=== PATIENT | male | born 1995 | race Caucasian/White ===

== ENCOUNTER 2018-11-12 14:04 | Inpatient (IN) | payer MEDICARE ==
[2018-11-12 14:57] LABS: ALBUMIN 2.9 g/dL (3.4-5.0); ANION GAP 20.4 mmol/L (8-16); BILIRUBIN - TOTAL 0.32 mg/dL (0.2-1.3); CALCIUM 9.6 mg/dL (8.5-10.1); CARBON DIOXIDE 22.9 mmol/L (21.0-32.0); MAGNESIUM - SERUM 2.4 mg/dL (1.8-2.4); POTASSIUM - SERUM 4.3 mmol/L (3.5-5.1); PROTEIN - SERUM 6.4 g/dL (6.4-8.2)
[2018-11-12 14:58] LABS: CREATININE - SERUM 20.1 mg/dL (0.6-1.3)
[2018-11-12 15:07] LABS: BASOPHILS 1.4 % (0-2); EOSINOPHILS 6.8 % (0-7); HEMOGLOBIN 8.8 g/dL (13.5-17.5); IMMATURE GRANULOCYTES 0.3 % (0-5); MCH 32.1 pg (26.0-34.0); MCHC 33.8 g/dL (31.0-37.0); MCV 94.9 fL (80.0-100.0); MEAN PLATELET VOLUME 9.9 fL (7.4-10.4); MONOCYTES 6.3 % (2-11); NEUTROPHILS 68.2 % (40-80); PLATELET COUNT 297 10x3/uL (130-400); RBC 2.74 10x6/uL (4.20-6.10); RDW 12.4 % (11.5-14.5); WBC 9.7 10x3/uL (4.8-10.8)
--- NOTE | 2018-11-12 17:00 | MORECARE ---
CASE MANAGEMENT DISCHARGE SUMMARY PATIENT: LAURA GRANT UNIT: [id number] ADM DATE: 11/12/18 AGE: 22 : [birth year] SEX: M ROOM/BED: D.2127 AUTHOR: ARA SWEET PHYSICIAN: REFERRING PHYSICIAN: GODFREY SMITH MD DATE OF SERVICE: 11/12/18 Discharge Plan Patient Name: LAURA GRANT Facility: [facility]:[place] : 1995 Planned Disposition: Home Anticipated Discharge Date: 11/16/18 Discharge Date: Expected LOS: 4 Initial Reviewer: [email or web address] Initial Review Date: 11/12/2018 Generated: 11/12/18 5:59 pm DCPIA - Discharge Planning Initial Assessment Updated by [email or web address]: Delma Oevrton on 11/12/18 4:56 pm * Is the patient Alert and Oriented? Yes * PCP Dr. Valadez in [facility] Dr. RADHA Steward Renal * Pharmacy [facility] * Preadmission Environment Home with Family * ADLs Independent * Equipment Other * Other Equipment PD supplies * List name and contact numbers for known caregivers / representatives who currently or will assist patient after discharge: Carolina Sorto - girlfriend - [phone] Iris Grant - grandmother - [phone] * Verbal permission to speak to the caregivers and representatives has been obtained from the patient. Yes * Community resources currently utilized None * Additional services required to return to the preadmission environment? No * Can the patient safely return to the preadmission environment? Yes * Has this patient been hospitalized within the prior 30 days at any hospital? Yes Patient Name: LAURA GRANT Page [phone] at 1700 All edits/amendments must be made on the electronic document DICTATION DATE: 11/12/181658 SOLID GLASS ROD DOWEL MACHINE OPERATOR: MELISA 11/12/181658 RPT#: [id number] DC DATE: STATUS: ADM IN [facility] [address] [place] [address] END OF REPORT
[2018-11-12 17:08] VITALS: BP 139/73
--- NOTE | 2018-11-12 17:09 | MORECARE ---
CASE MANAGEMENT DISCHARGE SUMMARY PATIENT: LAURA GRANT UNIT: [id number] ADM DATE: 11/12/18 AGE: 22 : [birth year] SEX: M ROOM/BED: D.4893 AUTHOR: ARA SWEET PHYSICIAN: REFERRING PHYSICIAN: GODFREY SMITH MD DATE OF SERVICE: 11/12/18 Discharge Plan Patient Name: LAURA GRANT Facility: [facility]:[place] : 1995 Planned Disposition: Home Anticipated Discharge Date: 11/16/18 Discharge Date: Expected LOS: 4 Initial Reviewer: [email or web address] Initial Review Date: 11/12/2018 Generated: 11/12/18 6:08 pm DCP- Discharge Planning Updated by [email or web address]: Delma Overton on 11/12/18 4:[address] Patient Name: LAURA GRANT Admission Status: ER Accout number: [id number] Admission Date: 11-12-2018 : 1995 Admission Diagnosis: Attending: GODFREY SMITH Current LOS: 1 Anticipated DC Date: 11-16-2018 Planned Disposition: Home Primary Insurance: MEDICARE A & B Discharge Planning Comments: CM met with patient and his grandfather to complete initial dc planning assessment. CM educated patient on the CM role and verbal consent given by patient to complete assessment. CM verified patient's address, phone number, and emergency contact phone numbers. Patient lives at home independently and his girlfriend lives with him. At discharge patient plans to return home and feels this is a safe discharge. He does PD at home every HS. His catheter is not working correctly and he was not able do complete his PD last pm. He denied any problems getting his supplies for his PD each month. CM discussed availability of home health, rehab services, and medical equipment. Patient denied known discharge needs at this time. Patient reports his girlfriend, Carolina, will transport him/her home at time of discharge. CM will continue to follow and will assist as needed with dc plans/needs. Health Information Management Director: Delma Overton RN, [facility] DCPIA - Discharge Planning Initial Assessment Updated by [email or web address]: Delma Overton on 11/12/18 4:56 pm * Is the patient Alert and Oriented? Yes * PCP Dr. Valadez in [facility] Dr. RADHA Steward Renal * Pharmacy [facility] * Preadmission Environment Home with Family * ADLs Independent * Equipment Other * Other Equipment PD supplies * List name and contact numbers for known caregivers / representatives who currently or will assist patient after discharge: Carolina Sorto - girlfriend - [phone] Iris Grant - grandmother - [phone] * Verbal permission to speak to the caregivers and representatives has been obtained from the patient. Yes * Community resources currently utilized None * Additional services required to return to the preadmission environment? No * Can the patient safely return to the preadmission environment? Yes * Has this patient been hospitalized within the prior 30 days at any hospital? Yes Last DP export: 11/12/18 4:00 pm Patient Name: LAURA GRANT Page [phone] at 1709 All edits/amendments must be made on the electronic document DICTATION DATE: 11/12/181707 MOTOR AND CHASSIS INSPECTOR: MELISA 11/12/181707 RPT#: [id number] DC DATE: STATUS: ADM IN [facility] [address] [place] [address] END OF REPORT
--- NOTE | 2018-11-12 18:00 | NUR ---
RECIVED FROM ER PER WC TO ROOM 80527. ADMIT ASSESSMENT PER RN.
[2018-11-12 18:15] VITALS: BMI 22.7
[2018-11-12 18:29] VITALS: BP 146/77
[2018-11-12 20:09] VITALS: BP 128/73
[2018-11-12] MEDS ORDERED: NORVASC10 MG PO (21:06)
[2018-11-12] MEDS ORDERED: TENORMIN100 MG PO (21:07)
[2018-11-12] MEDS ORDERED: PHENERGAN25 M1 PO (21:07)
[2018-11-12] MEDS ORDERED: MULTI-DAY VITAM1 TAB PO (21:07)
[2018-11-12] MEDS ORDERED: RENVELA800 MG PO (21:08)
[2018-11-12] MEDS ORDERED: COLACE100 MG PO (21:08)
[2018-11-12] MEDS ORDERED: COZAAR100 MG PO (21:09)
[2018-11-12] MEDS ORDERED: RESTORIL15 MG PO (21:09)
[2018-11-12] MEDS ORDERED: MEGACE40 MG PO (21:10)
[2018-11-12] MEDS ORDERED: SENSIPAR60 MG PO (21:11)
--- NOTE | 2018-11-12 21:15 | NUR ---
PT ASKING IF HE CAN DO A DIALYSIS EXCHANGE, EXPLAINED THAT WE DONT HAVE ORDERS TO DO PD BUT I WILL CALL THE DOCTOR. CALL OUT TO DORY DE LA PAZ APN LICENSED MENTAL HEALTH COUNSELOR FOR DR ALVARES.
--- NOTE | 2018-11-12 22:50 | NUR ---
PD EXCHAGE COMPLETE, REMOVED 200 CC, CLEAR COLORED FLUID. INSTILLED 2000 CC OF 2.5% DELFLEX PD SOLUTION. PT TOLERATED WELL.
[2018-11-13 00:54] VITALS: BP 159/90
--- NOTE | 2018-11-13 03:15 | NUR ---
I have reviewed this patient and I concur with the Shift Assessment completed by the Licensed Practical Nurse today this shift.
--- NOTE | 2018-11-13 03:22 | NUR ---
RESTING WITH EYES CLOSED, RESPERATIONS EVEN, NO S/S DISTRESS NOTED.
[2018-11-13 05:23] VITALS: BP 141/79
[2018-11-13 06:58] LABS: BASOPHILS 1.3 % (0-2); EOSINOPHILS 7.4 % (0-7); HEMATOCRIT 23.4 % (42.0-54.0); HEMOGLOBIN 8.3 g/dL (13.5-17.5); IMMATURE GRANULOCYTES 0.2 % (0-5); LYMPHOCYTES 19.4 % (15-50); MCH 33.1 pg (26.0-34.0); MCHC 35.5 g/dL (31.0-37.0); MCV 93.2 fL (80.0-100.0); MEAN PLATELET VOLUME 9.6 fL (7.4-10.4); MONOCYTES 4.7 % (2-11); PLATELET COUNT 284 10x3/uL (130-400); RBC 2.51 10x6/uL (4.20-6.10); RDW 12.2 % (11.5-14.5); WBC 9.6 10x3/uL (4.8-10.8)
[2018-11-13 07:16] LABS: ANION GAP 21.3 mmol/L (8-16); CALCIUM 9.2 mg/dL (8.5-10.1); CREATININE - SERUM 19.8 mg/dL (0.6-1.3); POTASSIUM - SERUM 4.3 mmol/L (3.5-5.1)
[2018-11-13 07:26] LABS: INR 1.15 (0.85-1.17); PROTIME 14.2 SECONDS (11.6-15.0)
--- NOTE | 2018-11-13 07:55 | NUR ---
ASSESSMENT DONE. DENIES NEEDS.
[2018-11-13 09:30] VITALS: BP 142/78
[2018-11-13 11:00] VITALS: BP 118/61
[2018-11-13 12:50] VITALS: BMI 21.4
--- NOTE | 2018-11-13 14:35 | NUR ---
TO OR PER BED
--- NOTE | 2018-11-13 16:23 | NUR ---
I have reviewed this patient and I concur with the Shift Assessment completed by the Licensed Practical Nurse today this shift.
--- NOTE | 2018-11-13 16:33 | NUR ---
WITHOUT CHANGES OR DISTRESS NOTED AT THIS TIME.
[2018-11-13 16:37] VITALS: BP 122/59
[2018-11-13 20:00] VITALS: BP 115/66
--- NOTE | 2018-11-13 20:42 | NUR ---
INITIAL ROUNDS COMPLETED AT 0 HRS. PT STATED PAIN 7/10 AT THAT TIME. ASKING WHEN NEXT PAIN MED DUE. INFORMED AT 0 HRS. ASSESSMENT COMPLETED AT 1954 HRS. PT ALERT AND ORIENTED TO PERSON, PLACE AND TIME. KRAMER. IV TO RFA SL. PD CATHETER NOTED TO LOWER ABD. INCISION NOTED TO R ABD. LUNGS ESSENTIALLY CTA. GIRLFRIEND AT BEDSIDE. SR UP X2,CALL LIGHT WITHIN REACH.
--- NOTE | 2018-11-13 22:46 | NUR ---
1975CC RETURN ON 1999CC PD EXCHANGE. LAP INCISION TO R ABD OOZING SMALL AMOUNTS OF CLEAR FLUID. SITE COVERED WITH 4X4'S AND TEGADERM. PT OUT AMBULATING AFTER EXCHANGE. GAIT EVEN AND STEADY. GIRLFRIEND AT BESIDE.
--- NOTE | 2018-11-13 23:16 | NUR ---
LAP INCISION SITE CONTINUES TO OOZE CLEAR FLUID. PRESSURE DRESSING APPLIED. EMOTIONAL SUPPORT GIVEN TO PT. WILL CONTINUE TO MONITOR.
--- NOTE | 2018-11-14 00:16 | NUR ---
PT UP TO SHOWER PER PT INSISTANCE. IV SITE WRAPPED. GIRLFRIEND AT BEDSIDE.
--- NOTE | 2018-11-14 01:53 | NUR ---
PD EXCHANGE IN PROGRESS. WILL CONTINUE TO MONITOR.
--- NOTE | 2018-11-14 04:23 | NUR ---
PT RESTING WITH EYES CLOSED. RESP EVEN AND REGULAR. GIRLFRIEND AT BEDSIDE. SR UP X2,CALL LIGHT WITHIN REACH.
[2018-11-14 04:30] VITALS: BP 111/58
[2018-11-14 05:00] LABS: BASOPHILS 0.6 % (0-2); EOSINOPHILS 4.2 % (0-7); HEMATOCRIT 23.2 % (42.0-54.0); HEMOGLOBIN 8.2 g/dL (13.5-17.5); IMMATURE GRANULOCYTES 0.3 % (0-5); LYMPHOCYTES 12.4 % (15-50); MCH 33.2 pg (26.0-34.0); MCHC 35.3 g/dL (31.0-37.0); MCV 93.9 fL (80.0-100.0); MEAN PLATELET VOLUME 9.3 fL (7.4-10.4); MONOCYTES 4.2 % (2-11); NEUTROPHILS 78.3 % (40-80); PLATELET COUNT 262 10x3/uL (130-400); RBC 2.47 10x6/uL (4.20-6.10); RDW 12.3 % (11.5-14.5); WBC 11.3 10x3/uL (4.8-10.8)
[2018-11-14 05:12] LABS: INR 1.17 (0.85-1.17); PROTIME 14.4 SECONDS (11.6-15.0)
[2018-11-14 05:14] LABS: ANION GAP 16.3 mmol/L (8-16); CALCIUM 8.6 mg/dL (8.5-10.1); CARBON DIOXIDE 25.1 mmol/L (21.0-32.0); CREATININE - SERUM 18.7 mg/dL (0.6-1.3); POTASSIUM - SERUM 4.4 mmol/L (3.5-5.1)
--- NOTE | 2018-11-14 05:46 | NUR ---
VSS. PT STATES NORCO CONTROLS PAIN. PD EXCHANGE IN PROGRESS. CALL LIGHT WITHIN REACH.
[2018-11-14 08:44] VITALS: BP 133/72
--- NOTE | 2018-11-14 09:36 | NUR ---
AM MEDS GIVEN AT THIS TIME. ALSO GAVE NORCO FOR PAIN LEVEL OF 7/10. PD DIALYSIS ALSO STARTED AT THIS TIME. PT DENIES ANY OTHER NEEDSA T THIS TIME. CALL LIGHT IN REACH, FEMALE FRIEND AT BEDSIDE,NAD NOTED, WILL CONTINUE TO MONITOR.
--- NOTE | 2018-11-14 10:10 | NUR ---
PD DIALYISIS DONE AT THIS TIME. TOTAL OUTPUT WAS 2100. PT STILL C/O THAT HE IS NOT EMPTYING OUT COMPLETELY. THAT HE STILL FEELS LIKE HIS ABD IS FULL. ALSO C/O SHOULDER PAIN WHICH STARTED YESTERDAY, INFORMED PT THAT IT IS PROBABLY AIR CAUSING THE PAIN. PT AND FEMALE FRIEND WANT TO TALK TO THE DOCTOR AGAIN BECAUSE HE FEELS LIKE HIS PD CATHETER IS NOT WORKING LIKE IS SHOULD WORK. NOTIFIED OMER TAYLOR APN.
[2018-11-14 12:08] VITALS: BP 133/67
--- NOTE | 2018-11-14 13:30 | NUR ---
CALLED OMER TAYLOR APN, AND INFORMED HER THAT HOBBY DID NOT GO AND TALK TO PT. PT WANTS TO TALK TO A DOCTOR BECAUSE HE IS C/O NOT DRAINING WELL AND WANTS SOMETHING TO BE DONE ABOUT IT. NEW ORDEREDS TO CHANGE PED FLUID TO 4.25% AND ONLY GIVE 1500 OUT OF THE 2000CC BAG.
--- NOTE | 2018-11-14 14:07 | NUR ---
STARTED THE PD DIALYSIS USING THE 4.25% FLUID AND ONLY ADDED 1500CC OF THE 2000CC FLUID. PT STARTED C/O OF CRAMPING AND STATED THAT HE IS NOT GOING TO BE ABLE TO DO THE 4.25% AND LEAVE IT IN FOR 4HRS. ALSO C/O OF ABD FEELING REALLY FULL. AND NOT EMPTYING RIGHT. PAGED DR. SMITH, RECEIVED CALL BACK FROM OMER TAYLOR APN, AND INFORMED HER THAT PT WANTS TO SEE THE DOCTOR AGAIN TODAY, REALLY CONCERN THAT HE IS NOT DRAINING WELL, OMER TAYLOR STATED THAT SHE WOULD TEXT DR. SMITH TO LET HIM KNOW. WILL ALSO CONTACT DR. ADKINS.
--- NOTE | 2018-11-14 14:29 | NUR ---
TALKED TO DR. ADKINS AND INFOMRED HIM THAT PT HAS SOME QUESTIONS ABOUT WHAT HE DID YESTERDAY, AND IS ALSO C/O NOT DRAINING WELL. LAST DIALYSIS HE DRAINED FOR ABOUT 2HRS AND ONLY DRAINED 1899. DR. ADKINS STATED THAT DR. SMITH TOLD HIM THAT PT WAS DRAINING WELL AND THE PD CATH WAS WORKING. DR. BYERS STATED THAT PT PROBABLY NEEDS TO HAVE A BM. CONTINUE TO DO DIALYSIS AND HE WILL SEE HIM IN THE AM.
--- NOTE | 2018-11-14 15:30 | NUR ---
PT TELEVISION NEWS ANCHOR LIGHT EVERY FIVE MINUTES, ASKING TO BE DRAINED BECAUSE HE IS HURTING. INFORMED PT THAT I CANNOT KEEP DRAINING HIM EVERY TWO HOURS. PT STATED WELL AT HOME A DWELL FOR ONE HOUR ONLY. INFORMED PT HERE IT IS DIFFERENT BECAUSE ITS BEING DONE MANUAL AND IT DOES NOT WORK LIKE HIS MACHINE AT HOME. PT STILL INSISTED THAT HE COULD NOT TAKE THE PAIN THAT HE NEEDED TO BE DRANIED NOW. STARTED DRAINING PT AT THIS TIME.
--- NOTE | 2018-11-14 17:37 | NUR ---
DR. SMITH AT BEDSIDE TO TALK TO PT. DIALYSIS IN PROCESS. TOTAL DRAINED IN 2HRS WAS 2100.
[2018-11-14 19:55] VITALS: BP 140/68
--- NOTE | 2018-11-14 20:18 | NUR ---
RECIEVED UP IN BED WITH EYES OPEN AND TV ON. GRANDMOTHER At BEDSIDE. PT UPSET AND DOES'NT THINK DOCTOR SARAH IS LISTENING TO HIM. GRANDMOTHER STATES HE BEEN DOING PD SINCE HE WAS 18 AND HE KNOWS WHEN IT'S NOT WORKING RIGHT. ASKED PT IF HE HAD TOLD DR. SMITH AND STATED YES". PT AND GRANDMOTHER VERY UPSET WITH THE BELIEF THAT NOONE IS LISTENING TO HIM.
--- NOTE | 2018-11-14 20:19 | NUR ---
PT STATES TESTES STARTED SWELLING LAST THUR.. TESTES ARE LARGER THAN A GRAPEFRUIT IN SIZE AND KAYLEY.
[2018-11-14 23:55] VITALS: BP 134/64
--- NOTE | 2018-11-15 03:44 | NUR ---
C/O CHEST PAIN WHEN HE BREATHS DEEP OR MOVES. V/S'S 98.7,141/62,71,20. REQUESTED PAIN MED. NORCO GIVEN PER ORDERS. PT HAS ALSO HAD A LOT OF FLATULENCE AND ONE SMALL BOWEL MOVEMENT. STATES HE HAS'NT HAD A BM SINCE LAST UR..
[2018-11-15 03:59] VITALS: BP 141/62
[2018-11-15 05:23] LABS: BASOPHILS 0.4 % (0-2); EOSINOPHILS 5.7 % (0-7); HEMATOCRIT 21.9 % (42.0-54.0); HEMOGLOBIN 7.7 g/dL (13.5-17.5); IMMATURE GRANULOCYTES 0.4 % (0-5); LYMPHOCYTES 8.9 % (15-50); MCH 32.9 pg (26.0-34.0); MCHC 35.2 g/dL (31.0-37.0); MCV 93.6 fL (80.0-100.0); MEAN PLATELET VOLUME 9.9 fL (7.4-10.4); NEUTROPHILS 75.6 % (40-80); PLATELET COUNT 220 10x3/uL (130-400); RBC 2.34 10x6/uL (4.20-6.10); RDW 12.3 % (11.5-14.5); WBC 11.3 10x3/uL (4.8-10.8)
[2018-11-15 05:40] LABS: INR 1.36 (0.85-1.17); PROTIME 16.2 SECONDS (11.6-15.0)
[2018-11-15 05:48] LABS: ANION GAP 19.8 mmol/L (8-16); CARBON DIOXIDE 21.2 mmol/L (21.0-32.0); CREATININE - SERUM 18.4 mg/dL (0.6-1.3); VANCOMYCIN - RANDOM 22.2 ug/mL (10.0-20.0)
[2018-11-15 08:09] VITALS: BP 135/74
[2018-11-15 11:12] VITALS: BP 136/69
--- NOTE | 2018-11-15 11:32 | OP ---
PATIENT NAME: LAURA JIMENEZ MEDICAL RECORD: [id number] :[birth year] LOCATION:D.M2 D.2127 ADMISSION DATE:11/12/18 SURGEON: PHILIP ADKINS MD DATE OF OPERATION: 11/13/2018 PREOPERATIVE DIAGNOSIS: Dysfunctional peritoneal dialysis catheter. POSTOPERATIVE DIAGNOSIS: Dysfunctional peritoneal dialysis catheter with normal diagnostic laparoscopy. OPERATION PERFORMED: Diagnostic laparoscopy. SURGEON: hPilip Adkins MD ANESTHESIA: General endotracheal per SILK SOAKER. REFERRING PHYSICIAN: Godfrey Smith MD PREOPERATIVE NOTE: This 22-year-old white male, chronic ambulatory peritoneal dialysis patient has begun to have persistent incomplete draining despite what is thought to be adequate treatment of constipation and so he is brought to the operating room today for laparoscopy and possible revision of his catheter. Under general anesthesia, the patient was prepped and draped in sterile manner. I entered the abdomen through the right upper quadrant with a 5 mm laparoscope and a 5-mm Optiview XL type port and achieved pneumoperitoneum with carbon dioxide insufflation and did a thorough examination. Basically the patient's peritoneal dialysis catheter, I believe is a single cuff catheter with a coil. The cuff is in the anterior abdominal wall immediately beneath the skin exit site, so that there was really very little tunnel. The catheter was suspended from the midline of the anterior abdominal wall by a monofilament loop type suture, which directs it quite effectively downward into the pelvis. The coiled portion was within the true pelvis, but not too far in or too deep. There were absolutely no adhesions or signs of any reaction or inflammation in the area. The PD catheter flushed easily. I connected to a bag of saline ran in 700 mL and then let gravity drainage drain 700 mL from the abdomen. The catheter is working well and I believe that his recent problems have too been somehow related to his bowels perhaps he had a larger stool volume in the colon in his pelvis and that is what caused the difficulty draining. The port was removed and the abdomen deinsufflated. The incision was infiltrated with 0.25% Marcaine plain and closed with interrupted inverted 3-0 Vicryl and Dermabond glue, Maxorb Ag, Tegaderm, and Cavilon skin prep. The extension set was reattached to the patient's PD catheter using sterile technique. The patient was awakened and extubated and taken to the recovery room. Blood loss during the operation was trivial and unreplaced. Sponges, instruments, and needles were accounted for. No drain was used. No surgical specimen submitted for histopathology. TRANSINT:[id number] Voice Confirmation ID: [id number] DOCUMENT ID: [id number] OPERATIVE REPORT [id number] LAURA JIMENEZ JAMES MD at 1132 CC: NAE FRIEDMAN RN and GODFREY SMITH MD [id number] DICTATION DATE: 11/13/18 1601 ANALYTICS LEAD: 11/13/18 2040 ADM IN [facility] [address] [place] [address]
[2018-11-15 16:12] VITALS: BP 130/63
--- NOTE | 2018-11-15 17:36 | NUR ---
PD EXCHANGE IN PROCESS. DENIES ANY NEEDS. WILL MONITOR
--- NOTE | 2018-11-15 19:14 | NUR ---
RECIEVED UP IN BED WITH EYES OPEN AND TV ON. GIRLFRIEND AT BEDSIDE. ALERT AND ORIENTED X4. UP AD PARESH. PD SITE TO LLQ. WITH DSG INTACT. IV TO RIGHT FA CHECKED FOR PATENCY. RECIEVED PD Q4 HRS. DENIES ANY NEEDS AT THIS TIME.
[2018-11-15 20:38] VITALS: BP 118/59
[2018-11-15 23:44] VITALS: BP 118/67
[2018-11-16 04:57] VITALS: BP 137/81
[2018-11-16 05:42] LABS: BASOPHILS 0.4 % (0-2); EOSINOPHILS 8.7 % (0-7); IMMATURE GRANULOCYTES 0.2 % (0-5); LYMPHOCYTES 15.4 % (15-50); MCH 32.7 pg (26.0-34.0); MCHC 34.8 g/dL (31.0-37.0); MCV 94.2 fL (80.0-100.0); MEAN PLATELET VOLUME 9.7 fL (7.4-10.4); MONOCYTES 11.3 % (2-11); PLATELET COUNT 176 10x3/uL (130-400); RBC 2.23 10x6/uL (4.20-6.10); RDW 12.2 % (11.5-14.5)
[2018-11-16 05:44] LABS: HEMOGLOBIN 7.3 g/dL (13.5-17.5); WBC 8.2 10x3/uL (4.8-10.8)
[2018-11-16 06:15] LABS: ANION GAP 20.1 mmol/L (8-16); CALCIUM 9.2 mg/dL (8.5-10.1); CARBON DIOXIDE 22.9 mmol/L (21.0-32.0); CREATININE - SERUM 18.9 mg/dL (0.6-1.3); VANCOMYCIN - RANDOM 19.2 ug/mL (10.0-20.0)
[2018-11-16 06:41] LABS: INR 1.35 (0.85-1.17); PROTIME 16.2 SECONDS (11.6-15.0)
[2018-11-16 06:44] LABS: PHOSPHOROUS 10.5 mg/dL (2.5-4.9)
--- NOTE | 2018-11-16 08:00 | NUR ---
PT RESTING IN BED, SHIFT ASSESSMENT PERFORMED. AM MEDICATIONS GIVEN ORDERED. DENIES ANY OTHER NEEDS AT THIS TIME, WILL CONT TO FOLLOW POC
[2018-11-16 08:23] VITALS: BP 145/87
--- NOTE | 2018-11-16 09:00 | NUR ---
STILL NO RESPONSE FROM DORY ANTUNEZ, PLACED A SECOND PAGE TO HER.
--- NOTE | 2018-11-16 09:30 | NUR ---
PT REPORTS THAT HE FEELS SWOLLEN AND HE NEEDS TO DRAIN THE PD FLUID OUT. PT HAD JUST FINISHED PUTTING THIS FLUID IN AT 726. ATTEMPTED TO REACH DORY OSULLIVANN AND LEFT CALL BACK NUMBER. ADVISED PT TO WAIT FOR BOOKING PRIZER TO CALL BACK TO GIVE FURTHER INSTRUCTIONS. PT AGREES
--- NOTE | 2018-11-16 10:00 | NUR ---
PAGED . STILL NO ANSWER FROM DORY ANTUNEZ
[2018-11-16 11:57] VITALS: BP 130/71
--- NOTE | 2018-11-16 12:57 | NUR ---
RECIEVED CALL FROM DORY ANTUNEZ THAT PT MAY DRAIN. NOTIFIED DORY ANTUNEZ THAT HAD D/C ORDER FOR 4.25% 1000CC Q12HR AND STARTED PT ON 2.5% 1000CC Q4HR. PT STILL HAS ACTIVE ORDER FOR 2.5% 2000CC Q4H WITH THE NEW ORDER. DORY ANTUNEZ GAVE ORDER TO D/C 2.5% 2000CC Q4H AND KEEP THE NEW ORDER OF 2.5% 1000CC Q4HR. NOTIFIED PT.
--- NOTE | 2018-11-16 13:36 | NUR ---
SPOKE WITH REGARDING PT FEELING VERY SWOLLEN STILL AND PT NOT RETURNING ALL THE FLUID THAT WAS INSTILLED EARLIER. NEW ORDER RECIEVED TO HAVE PT DRAIN NOW AND GIVE ONE TIME DOSE OF 4.25% 1000CC TO SEE IF THIS HELPED PT REMOVE FLUID. NOTIFIED PT
--- NOTE | 2018-11-16 14:00 | NUR ---
PT REPORTS BURNING UPON URINATION AND STATES THAT HE IS FORCING HIMSELF TO URINATE. BLADDER SCAN REVIELED 280CC URINE IN PT BLADDER. NOTIFIED . NEW ORDER RECIEVED TO INSERT RAY CATHETER DUE TO RETENTION. 16FR RAY CATHETER INSERTED VIA STERILE TECHNIQUE. SLIGHT AMOUNT OF RESISTANCE MET. APPLIED SLIGHT PRESSURE AND RAY WAS INSERTED SUCCESSFULLY. 300ML STRAW COLORED URINE RETURNED. SAMPLE OBTAINED AND SENT TO LAB DUE TO BURNING PAIN. DENIES ANY OTHER NEEDS AT THIS TIME. WILL CONT TO FOLLOW POC
--- NOTE | 2018-11-16 14:20 | NUR ---
PT ALERTED NURSE THAT THE RAY IS BURNING AND THAT HE HAD SOME URINE COME OUT AROUND THE CATHETER. ADVISED PT THE RAY WILL BE UNCOMFORTABLE FOR A WHILE BUT DUE TO THE SWELLING AROUND HIS GENITALS AND THE URINE RETENTION HE REALLY NEEDS THE CATHETER TO STAY IN PLACE. PT STATES HIS GRANDMA TOLD HIM TO TELL THE NURSE THAT HE NEEDS SOMETHING FOR BLADDER SPASMS. ADVISED PT THAT HE HAD JUST BEEN GIVEN HIS PRN PAIN MEDICATION AND TO GIVE IT A LITTLE BIT TO WORK. PT AGREES
[2018-11-16 15:40] VITALS: BP 128/47
--- NOTE | 2018-11-16 15:40 | NUR ---
PT IS ADAMENT UPON SEEING TODAY. CALLED OFFICE AND LEFT MESSAGE WITH THE NURSE.
--- NOTE | 2018-11-16 16:19 | NUR ---
PATIENT EQUIPMENT MAINTENANCE ENGINEER LIGHT. PRIMARY NURSE IN ANOTHER ROOM. I ANSWERED THE LIGHT AND PATIENT WANTS TO SEE HIS NURSE. I ASKED HIM IF I COULD HELP AND HE SAID "IT'S ABOUT THE RAY". STATES THAT IT IS BURNING AND HE WANTS IT OUT. I EXPLAINED TO HIM THAT THE BURNING IS NORMAL FROM THE PLACEMENT OF IT. I ALSO SAID THAT SINCE HIS SCROTUM IS SWOLLEN AND THAT IS ONLY VOIDS SMALL AMOUNTS, THAT WE NEED TO LEAVE THE RAY IN SO THAT HE CAN PASS URINE. STATES THAT HE WILL TRY. I ALSO ASKED HIM IF HE HAD A HAND TOWEL OR PILLOWCASE UNDER HIS SCROTUM TO HELP LIFT IT UP TO HELP WITH THE SWELLING. HE SAID NO AND I GAVE HIM A HAND TOWEL TO PLACE THERE.
[2018-11-16 16:31] LABS: APPEARANCE CLEAR (CLEAR); BILIRUBIN NEGATIVE (NEGATIVE); COLOR STRAW (YELLOW); GLUCOSE 50 mg/dL (NEGATIVE); KETONE NEGATIVE (NEGATIVE); NITRITE NEGATIVE (NEGATIVE); PROTEIN TRACE mg/dL (NEGATIVE); SPECIFIC GRAVITY 1.005 (1.005-1.020); UROBILINOGEN NORMAL (NORMAL)
[2018-11-16 20:18] VITALS: BP 122/65
--- NOTE | 2018-11-16 22:26 | NUR ---
C/O PAIN EARLIER TODAY AND ASK NURSE TO SEE IF SHE COULD GET HIM A STRONGER PAIN MEDICATIN. CALLED CIGARETTE EXAMINER KE DE LA PAZ WITH NEW ORDER FOR BUPRENEX. PT WANTED TO WAIT TO RECIEVE MEDICATION TO SEE IF IT WOULD EASE UP. MEDICATION GIVEN LATER AND STATED RELIEF. DRAING AT THIS TIME. DENIES ANY OTHER NEEDS.
[2018-11-17] VITALS (7 sets, daily range): BP systolic 106–142; BP diastolic 54–90
[2018-11-17 06:21] LABS: BASOPHILS 0.5 % (0-2); EOSINOPHILS 9.1 % (0-7); IMMATURE GRANULOCYTES 0.1 % (0-5); MCHC 34.8 g/dL (31.0-37.0); MEAN PLATELET VOLUME 10.3 fL (7.4-10.4); MONOCYTES 10.3 % (2-11); PLATELET COUNT 204 10x3/uL (130-400); RBC 2.21 10x6/uL (4.20-6.10); RDW 12.2 % (11.5-14.5); WBC 7.5 10x3/uL (4.8-10.8)
[2018-11-17 06:38] LABS: INR 1.2 (0.85-1.17); PROTIME 14.7 SECONDS (11.6-15.0)
[2018-11-17 07:01] LABS: HEMOGLOBIN 7.3 g/dL (13.5-17.5)
[2018-11-17 07:03] LABS: ANION GAP 17.8 mmol/L (8-16); CALCIUM 9.4 mg/dL (8.5-10.1); CARBON DIOXIDE 25.5 mmol/L (21.0-32.0); CREATININE - SERUM 18.4 mg/dL (0.6-1.3); VANCOMYCIN - RANDOM 16.1 ug/mL (10.0-20.0)
[2018-11-17 07:07] LABS: PHOSPHOROUS 9.5 mg/dL (2.5-4.9); POTASSIUM - SERUM 3.3 mmol/L (3.5-5.1)
--- NOTE | 2018-11-17 07:10 | NUR ---
REPORT RECEIVED FROM MANAGING PARTNER [employer] MARK[employer]ING [place] AND PATIENT CARE ASSUMED. PATIENT LAYING IN BED WITH EYES CLOSED AND BREATHING EVENLY. VSS. WILL CONTINUE WITH PLAN OF CARE. SR UP X 2 BED IN LOW POSITION AND CALL LIGHT IN REACH.
--- NOTE | 2018-11-17 07:45 | NUR ---
PATIENT AWAKE, ALERT AND ORIENTED X 4. PATIENT COMPLAINS ABD PAIN AND REQUESTS PAIN RX. PATIENT ALSO STATES THAT ONLY 3 SM BMS YESTERDAY. MEDICATED PER MAR WITH BUPRENEX. WILL CONTINUE TO MONITOR. SR UP X 2 BED IN LOW POSITION AND CALL LIGHT IN REACH.
--- NOTE | 2018-11-17 09:45 | NUR ---
PD PERFORMED. (+) 300CCS RETAINED. PATIENT TOLERATED WELL AND VSS. KE TELLO WITH DR SMITH ON UNIT. NEW ORDERS RECEIVED FOR MIRALAX 34 MG Q 15 MINUTES UNTIL PATIENT HAS HAD BM'S. GAVE PATIENT IST MIRALAX WITH WATER. WILL CONTINUE WITH MIRALAX KEITH ORDERED.
--- NOTE | 2018-11-17 13:56 | NUR ---
Nutrition Follow Up: Pt is on a Renal Diet with 40% average po intake Weight 169lb Reviewed labs Pt reports eating ok and pt reports the food options are ok Pt has no questions about diet at this time RD following
--- NOTE | 2018-11-17 14:06 | NUR ---
PATIENT REPORTS HAVING A LARGE AMOUNT OF LOOSE STOOL. WILL CONTINUE TO MONITOR.
--- NOTE | 2018-11-17 14:38 | NUR ---
PATIENT COMPLAINS OF 10/10 PAIN TO SCROTUM. SCROTUM CONTINUES TO BE VERY SWOLLEN. CALLED OMER DEMPSEY. NEW ORDERS RECEIVED.
--- NOTE | 2018-11-17 19:00 | NUR ---
PATIENT LAYING IN BED. COMPLAINS OF PAIN. PATIENT GIVEN MEDICATION TO TREAT. NO OTHER COMPLAINTS AT THIS TIME. NO DISTRESS NOTED.
--- NOTE | 2018-11-18 02:15 | NUR ---
PATIENT WALKING THROUGH HALLWAY. NO COMPLAINS AT THIS TIME. NO DISTRESS NOTED.
--- NOTE | 2018-11-18 04:40 | NUR ---
I have reviewed this patient and I concur with the Shift Assessment completed by the Licensed Practical Nurse today this shift.
[2018-11-18 04:58] LABS: BASOPHILS 0.5 % (0-2); EOSINOPHILS 9.1 % (0-7); HEMATOCRIT 22.3 % (42.0-54.0); HEMOGLOBIN 7.7 g/dL (13.5-17.5); IMMATURE GRANULOCYTES 0.1 % (0-5); LYMPHOCYTES 14.3 % (15-50); MCH 32.5 pg (26.0-34.0); MCHC 34.5 g/dL (31.0-37.0); MCV 94.1 fL (80.0-100.0); MEAN PLATELET VOLUME 10.1 fL (7.4-10.4); MONOCYTES 10.3 % (2-11); NEUTROPHILS 65.7 % (40-80); PLATELET COUNT 223 10x3/uL (130-400); RBC 2.37 10x6/uL (4.20-6.10); RDW 12.3 % (11.5-14.5); WBC 8.6 10x3/uL (4.8-10.8)
[2018-11-18 05:04] VITALS: BP 150/97
[2018-11-18 05:18] LABS: INR 1.23 (0.85-1.17)
[2018-11-18 05:38] LABS: ALBUMIN 2.4 g/dL (3.4-5.0); ANION GAP 18.6 mmol/L (8-16); CALCIUM 8.9 mg/dL (8.5-10.1); CARBON DIOXIDE 23.2 mmol/L (21.0-32.0); CREATININE - SERUM 17.6 mg/dL (0.6-1.3); VANCOMYCIN - RANDOM 12.7 ug/mL (10.0-20.0)
[2018-11-18 05:39] LABS: PHOSPHOROUS 9.3 mg/dL (2.5-4.9); POTASSIUM - SERUM 3.8 mmol/L (3.5-5.1)
--- NOTE | 2018-11-18 07:10 | NUR ---
REPORT RECEIVED FROM MANAGER SUPPLY CHAIN AND PATIENT CARE ASSUMED. PATIENT LAYING IN BED ON BACK AWAKE, ALERT AND ORIENTED X 4. GIRLFRIEND AT BS. RE-STARTED BUMEX THAT WAS NOT INFUSING. PATIENT COMPLAINS OF ACUTE PAIN AND SWELLING TO TESTES. MEDICATED PER MAR AND ICE PACK APPLIED. VSS. WILL CONTINUE WITH PLAN OF CARE.
[2018-11-18 08:00] VITALS: BP 156/102
--- NOTE | 2018-11-18 10:00 | NUR ---
PATIENT IS STABLE AND UNCHANGED. ASSESSMENT COMPLETED. WILL CONTINUE TO MONITOR.
[2018-11-18 11:00] VITALS: BP 155/99
--- NOTE | 2018-11-18 12:54 | NUR ---
PATIENT SITTING UP IN BED EATING LUNCH. GIRLFRIEND AT BS. IV INFILTRATED. RE-SITED TO RT AC 20G. BUMEX INFUSING. TESTES VERY SWOLLEN AND PAINFUL. TESTES PROPPED UP ON TOWEL. VSS. WILL CONTINUE TO MONITOR. SR UP X 2 BED IN LOW POSITION AND CALL LIGHT IN REACH.
[2018-11-18 13:42] LABS: EOS BF 3 %; MACROPHAGES BF 31 %; MESOTHELIALS BF 3 %; NEUT - BF 35 %
[2018-11-18 16:13] VITALS: BP 119/62
--- NOTE | 2018-11-18 19:00 | NUR ---
PATIENT WALKING IN HALLWAY. NO COMPLAINTS AT THIS TIME. NO DISTRESS NOTED.
[2018-11-18 21:27] VITALS: BP 127/75
--- NOTE | 2018-11-19 03:07 | NUR ---
I have reviewed this patient and I concur with the Shift Assessment completed by the Licensed Practical Nurse today this shift.
--- NOTE | 2018-11-19 03:23 | NUR ---
PATIENT LAYING IN BED, EYES CLOSED, CHEST RISING AND FALLING. NO DISTRESS NOTED.
[2018-11-19 05:32] VITALS: BP 130/69
--- NOTE | 2018-11-19 05:57 | NUR ---
PATIENT LAYING IN BED. NO COMPLAINTS AT THIS TIME. NO DISTRESS NOTED.
[2018-11-19 06:15] LABS: BASOPHILS 0.7 % (0-2); EOSINOPHILS 7.6 % (0-7); HEMATOCRIT 21.1 % (42.0-54.0); IMMATURE GRANULOCYTES 0.3 % (0-5); LYMPHOCYTES 23.1 % (15-50); MCH 32.6 pg (26.0-34.0); MCHC 34.6 g/dL (31.0-37.0); MCV 94.2 fL (80.0-100.0); MEAN PLATELET VOLUME 10.4 fL (7.4-10.4); MONOCYTES 11.9 % (2-11); NEUTROPHILS 56.4 % (40-80); PLATELET COUNT 196 10x3/uL (130-400); RBC 2.24 10x6/uL (4.20-6.10); RDW 12.5 % (11.5-14.5); WBC 7.5 10x3/uL (4.8-10.8)
[2018-11-19 06:19] LABS: HEMOGLOBIN 7.3 g/dL (13.5-17.5)
[2018-11-19 06:30] LABS: INR 1.27 (0.85-1.17); PROTIME 15.3 SECONDS (11.6-15.0)
[2018-11-19 06:45] LABS: ANION GAP 16.6 mmol/L (8-16); CALCIUM 9.2 mg/dL (8.5-10.1); CARBON DIOXIDE 26.1 mmol/L (21.0-32.0); CREATININE - SERUM 17.6 mg/dL (0.6-1.3); PHOSPHOROUS 8.9 mg/dL (2.5-4.9); POTASSIUM - SERUM 3.7 mmol/L (3.5-5.1)
--- NOTE | 2018-11-19 07:10 | NUR ---
REPORT RECEIVED FROM TIE IN HAND AND PATIENT CARE ASSUMED. PATIENT IS AWAKE , ALERT AND WALKING AROUND UNIT. PATIENT IS NPO AWAITING SURGERY. WILL CONTINUE WITH PLAN OF CARE.
--- NOTE | 2018-11-19 09:15 | NUR ---
PATIENT ASSESSMENT COMPLETED. PATIENT COMPLAINS OF PAIN IN TESTES. MEDICATED PER MAR. WILL CONTINUE TO MONITOR.
[2018-11-19 09:31] VITALS: BP 132/75
[2018-11-19 12:50] VITALS: BP 142/92
--- NOTE | 2018-11-19 14:44 | NUR ---
RECEIVED CALL FROM SURGERY TO PREOP PATIENT. INFORMED JOHN WITH SURGERY TEAM THAT THERE WERE NO ORDERS FOR PREOP. HE STATED THAT SURGERY WILL MEDICATE PATIENT IN SURGERY. WILL CONTINUE TO MONITOR.
--- NOTE | 2018-11-19 15:27 | NUR ---
PATIENT IS STABLE AND VSS. SURGERY TEAM TRANSPORTED PATIENT VIA HOSPITAL BED AND SURGERY TEAM PERSONNEL.
--- NOTE | 2018-11-19 19:30 | NUR ---
PT ALERT AND ORIENTED SITTING UP IN BED COMPLAING OF PAIN IN SCROTUM. PT RECIEVED PRN PAIN MEDICATION. BED LOW CALL LIGHT WITHIN REACH. WILL CONTINUE TO MONITOR.
[2018-11-19 20:00] VITALS: BP 163/89
--- NOTE | 2018-11-19 21:42 | NUR ---
PT COMPLAINS OF 8/10 PAIN IN SCROTUM. KE READ CALLED. SHE ORDERED NORCO 10 Q 4 PRN.
--- NOTE | 2018-11-19 22:03 | NUR ---
PT RECIEVING HEMO-DIALYSIS. PT DENIES ANY NEEDS AT THIS TIME. BED LOW CALL LIGHT WITHIN REACH. WILL CONTINUE TO MONITOR.
[2018-11-20] VITALS: BP 156/80
--- NOTE | 2018-11-20 02:05 | NUR ---
PT UP WALKING AROUND ALERT AND ORIENTED. PT COMPLAINS OF BEING CONSTIPATED. HASN'T HAD BOWEL MOVEMENT IN THREE DAYS. WILL NOTIFY DOCTOR IN AM. NO S/S OF DISTRESS. BED LOW CALL LIGHT WITHIN REACH. WILL CONTINUE TO MONITOR.
--- NOTE | 2018-11-20 03:30 | NUR ---
PT RESTING IN BED AT THIS TIME WITH EYES CLOSED. RR EVEN AND UNLABORED. BED LOW CALL LIGHT WITHIN REACH. WILL CONTINUE TO MONITOR.
[2018-11-20 04:30] VITALS: BP 122/57
--- NOTE | 2018-11-20 04:31 | NUR ---
I have reviewed this patient and I concur with the Shift Assessment completed by the Licensed Practical Nurse today this shift.
[2018-11-20 06:19] LABS: BASOPHILS 0.5 % (0-2); EOSINOPHILS 2.6 % (0-7); HEMATOCRIT 22.2 % (42.0-54.0); IMMATURE GRANULOCYTES 0.2 % (0-5); LYMPHOCYTES 8.7 % (15-50); MCH 32.3 pg (26.0-34.0); MCHC 33.8 g/dL (31.0-37.0); MCV 95.7 fL (80.0-100.0); MEAN PLATELET VOLUME 10.6 fL (7.4-10.4); PLATELET COUNT 172 10x3/uL (130-400); RBC 2.32 10x6/uL (4.20-6.10); RDW 12.4 % (11.5-14.5)
[2018-11-20 06:37] LABS: ANION GAP 13.9 mmol/L (8-16); CALCIUM 9.1 mg/dL (8.5-10.1); CARBON DIOXIDE 26.8 mmol/L (21.0-32.0); VANCOMYCIN - RANDOM 7.7 ug/mL (10.0-20.0)
[2018-11-20 06:38] LABS: CREATININE - SERUM 12.4 mg/dL (0.6-1.3); POTASSIUM - SERUM 4.7 mmol/L (3.5-5.1)
[2018-11-20 06:48] LABS: INR 1.15 (0.85-1.17); PROTIME 14.2 SECONDS (11.6-15.0)
[2018-11-20 06:59] LABS: HEMOGLOBIN 7.5 g/dL (13.5-17.5)
--- NOTE | 2018-11-20 07:46 | NUR ---
MORNING ROUNDS MADE. PT SITTING UP IN BED RESTING. DENIES PAIN AT THIS TIME. A/O X 4. R AC IV WITH BUMEX DRIP @ 5 ML/HR. IV PATENT, NO REDNESS OR EDEMA NOTED. RM AIR. BREATHING EVEN AND UNLABORED. ABD DISTENDED, SOFT, NONTENDER. PD CATH TO RUQ. R CHEST HEMOSPLIT, DRSG C/D/I. DENIES FURTHER NEEDS AT THIS TIME. FALL PRECAUTIONS IN PLACE. BED LOWERED AND LOCKED. CL IN REACH. WILL CTM.
--- NOTE | 2018-11-20 08:44 | NUR ---
PT SITTING UP IN BED EATING BREAKFAST. VITALS STABLE. MEDS TAKEN WITHOUT DIFFICULTY. NO FURHTER CONCERNS AT THIS TIME. FALL PRECAUTIONS IN PLACE. BED LOWERED AND LOCKED. CL IN REACH. WILL CTM.
[2018-11-20 09:40] VITALS: BP 134/71
--- NOTE | 2018-11-20 09:40 | NUR ---
PT C/O PAIN OF A 8/10 IN GROIN, BUPERNEX GIVEN TO IV IN R AC, PATENT, NO REDNESS OR EDEMA NOTED. STAT LOCK MOVED TO R LEG. RAY DRAINING BY GRAVITY, LIGHT RIAN URINE NOTED. DENIES FURTHER CONERNS AT THIS TIME. WILL CTM.
--- NOTE | 2018-11-20 12:04 | NUR ---
PT C/O CONSTIPATION, CHRONULAC GIVEN PO. SEE EMAR
[2018-11-20 13:14] VITALS: BP 136/68
--- NOTE | 2018-11-20 13:49 | NUR ---
Nutrition Follow Up: Pt was out of the room at the time of RD visit. No family present. Interview deferred at this time. Diet: Renal ADA PO Intake: 72% meal avg BM: 11/18/18 Wt gain noted - likely r/t fluid Labs reviewed Meds noted including Lactulose, Lasix Rec continue current diet. RD following.
--- NOTE | 2018-11-20 14:04 | NUR ---
I have reviewed this patient and I concur with the Shift Assessment completed by the Licensed Practical Nurse today this shift.
--- NOTE | 2018-11-20 15:52 | NUR ---
WENT TO LAB TO GET BLOOD. COMPUTER OPERATIONS MANAGER INFORMED ME THAT PT HASNT BEEN TYPED AND CROSSED MATCHED YET DUE TO GOING TO BE DONE IN HD. AFTER RETURNING TO FLOOR, CALLED AIR CREW OFFICER, INFOMRED HER THAT THE ORDER WAS ENTERED AT 1245 AND THE PT HAD YET TO BE DRAWN. RESEARCH ENVIRONMENTAL ENGINEER STATED THAT SHE WOULD SEND SOMEONE OVER TO DRAW PT BLOOD SO THAT PT COULD STILL REIEVE BLOOD IN DIALYSIS. SPOKE WITH HD NURSE, AGREE WTIH POC. SPOKE WITH MEGGAN DEMPSEY, AGREE WITH POC, ORDERS GIVEN TO DEFER ORDER FOR 2 UNITS OF PRBC TILL DIALYSIS TOMORROW IF UNABLE TO RECIEVE TODAY.
--- NOTE | 2018-11-20 15:55 | NUR ---
PHLEBO IN ROOM AT THIS TIME DRAWING PT BLOOD.
--- NOTE | 2018-11-20 16:08 | NUR ---
PT TO HD VIA BED
--- NOTE | 2018-11-20 18:34 | NUR ---
REPORT TAKEN FROM DIALYSIS.
--- NOTE | 2018-11-20 19:30 | NUR ---
PT UP WALKING AROUND ALERT AND ORIENTED. PT DENIES ANY NEEDS AT THIS TIME. BED LOW CALL LIGHT WITHIN REACH. WILL CONTINUE TO MONITOR.
--- NOTE | 2018-11-20 19:49 | NUR ---
PT RETURNED FROM DIALYSIS ALERT AND ORIENTED. VITALS STABLE. PT COMPLAINS OF PAIN 02/20 REQUEST PRN PAIN MEDICATION SEE SEP. BED LOW CALL LIGHT WITHIN REACH. WILL CONTINUE TO MONITOR.
[2018-11-20 20:00] VITALS: BP 138/84
[2018-11-21] VITALS (7 sets, daily range): BP systolic 131–150; BP diastolic 75–91
--- NOTE | 2018-11-21 03:30 | NUR ---
PT 20G IV INFILTRATED IN RIGHT AC. IV DC'D WITH CATHETER TIP IN PLACE. NO SWELLING OR REDNESS NOTED. 20G IV RE-ESTABLISHED IN LEFT LATERAL FOREARM. IV PATENT SWAB CAP IN USE. BED LOW CALL LIGHT WITHIN REACH. WILL CONTINUE TO MONITOR.
--- NOTE | 2018-11-21 03:32 | NUR ---
I have reviewed this patient and I concur with the Shift Assessment completed by the Licensed Practical Nurse today this shift.
[2018-11-21 05:34] LABS: BASOPHILS 0.4 % (0-2); EOSINOPHILS 5.6 % (0-7); HEMATOCRIT 25.2 % (42.0-54.0); HEMOGLOBIN 8.7 g/dL (13.5-17.5); IMMATURE GRANULOCYTES 0.2 % (0-5); LYMPHOCYTES 16.6 % (15-50); MCH 32.5 pg (26.0-34.0); MCHC 34.5 g/dL (31.0-37.0); MEAN PLATELET VOLUME 10.6 fL (7.4-10.4); MONOCYTES 9.2 % (2-11); PLATELET COUNT 166 10x3/uL (130-400); RBC 2.68 10x6/uL (4.20-6.10); RDW 13.8 % (11.5-14.5); WBC 8.1 10x3/uL (4.8-10.8)
[2018-11-21 05:48] LABS: INR 1.13 (0.85-1.17)
[2018-11-21 05:54] LABS: ANION GAP 15.8 mmol/L (8-16); CALCIUM 9.3 mg/dL (8.5-10.1); CREATININE - SERUM 10.1 mg/dL (0.6-1.3); PHOSPHOROUS 6.3 mg/dL (2.5-4.9)
[2018-11-21 06:01] LABS: POTASSIUM - SERUM 3.8 mmol/L (3.5-5.1)
--- NOTE | 2018-11-21 06:10 | NUR ---
PT UP IN WHEELCHAIR ROLLING SELF TO VENDING MACHINE. PT STATES THAT HE IS UNABLE TO SLEEP. WILL CONTINUE TO MONITOR.
--- NOTE | 2018-11-21 07:40 | NUR ---
A/A/OX4. REQUESTING IV PAIN MED. STATES PAIN IS AT LEVEL OF 8. BUPRENEX GIVEN REQUESTED. NO OTHER REQUESTS. ASSESSMENT COMPLETED. BED IN LOW POSITION WITH CALL LIGHT IN REACH. WILL CONTINUE POC.
--- NOTE | 2018-11-21 09:38 | OP ---
PATIENT NAME: LAURA JIMENEZ MEDICAL RECORD: [id number] :[birth year] LOCATION:D.M2 D.2127 ADMISSION DATE:11/12/18 SURGEON: BERTRAM BRIONSE MD DATE OF OPERATION: 11/19/2018 PREOPERATIVE DIAGNOSES: 1. End-stage renal disease without chronic access for hemodialysis. 2. Failed peritoneal dialysis. POSTOPERATIVE DIAGNOSES: 1. End-stage renal disease without chronic access for hemodialysis. 2. Failed peritoneal dialysis. PROCEDURES: 1. Placement of a right internal jugular 19-cm HemoSplit catheter (tunneled cuffed dual-lumen hemodialysis catheter) under fluoroscopic guidance. 2. Immediate surgeon interpretation of the fluoroscopic images. SURGEON: Bertram Briones MD SURG NURSE: None. BLOOD LOSS: Minimal. ANESTHESIA: General. COMPLICATIONS: None. No radiologist was present for this procedure. Static fluoroscopic images were obtained and are kept in the PACS system. The surgeon interpretation of the radiographic images is dictated within the body of this operative note. I am occupational safety and health manager for Dr. Adkins who is his surgeon. OPERATIVE COURSE: The patient was conveyed to the operating room electively on 11/19/2018. General anesthesia was induced by the anesthesia staff. The right neck and right chest were sterilely prepped and draped. Under ultrasonographic guidance, I percutaneously accessed the right internal jugular vein. A guidewire passed easily. This was visualized under fluoroscopy. A small skin alona was accomplished around the guidewire. A counterincision was accomplished in the right anterior superior infraclavicular chest. I tunneled a 19-cm HemoSplit catheter from the chest incision to the neck incision. Over the wire, I dilated to a larger size. Dilator sheath was then advanced. The dilator and wire were removed. Through the peel-away sheath, the tips of the HemoSplit catheter were advanced. The Peel-Away sheath was then removed. I then pulled back on the HemoSplit catheter to seat the cuff in the subcutaneous tissues. The neck incision was closed with interrupted intracuticular 3-0 Vicryls. The flange of the HemoSplit catheter was sutured to the underlying skin with 3-0 Prolenes. Both lumens flushed easily and aspirated dark, nonpulsatile blood. I then flushed both lumens of the HemoSplit catheter with the appropriate amount of concentrated heparin. Some fibrillar was packed up along HemoSplit catheter tract due to some minor bleeding. OPERATIVE REPORT [id number] LAURA JIMENEZ A sterile dressing was applied. The patient was then extubated and conveyed to post-anesthesia care unit where he was in stable condition. TRANSINT:[id number] Voice Confirmation ID: [id number] DOCUMENT ID: [id number] BERTRAM BRIONES MD at 0938 CC: PHILIP ADKINS and GODFREY SMITH MD [id number] DICTATION DATE: 11/19/18 1701 CYANIDE FURNACE OPERATOR: 11/19/18 1730 ADM IN [facility] [address] [id number]
--- NOTE | 2018-11-21 13:06 | NUR ---
I have reviewed this patient and I concur with the Shift Assessment completed by the Licensed Practical Nurse today this shift.
[2018-11-21 18:06] LABS: HEPATITIS C ANTIBODY <0.1 S/CO RAT (0.0-0.9)
--- NOTE | 2018-11-21 19:11 | NUR ---
BACK FROM DIALYSIS. NO DISTRESS NOTED.
--- NOTE | 2018-11-21 19:30 | NUR ---
PT OUTSIDE WITH GIRLFRIEND.
--- NOTE | 2018-11-21 21:42 | NUR ---
ASSESSMENT COMPLETED AT 1950 HRS. VSS. ALERT AND ORIENTED TO PERSON,PLACE AND TIME. KRAMER. IV TO LFA SL. R CHEST HEMOSPLIT CLEAN, DRY AND INTACT. ABD WITH ACTIVE BS NOTED. PD CATHETER INTACT. RAY DRAINING YELLOW URINE. SCROTUM SWOLLEN. PM MES GIVEN INCLUDING BUPRENEC 0.3MG SIVP FOR C/O PAIN 01/20 TO ABD AND SCROTUM. PT CURRENTLY CONVERSING WITH GIRLFRIEND. SR UP X2,CALL LIGHT WITHIN REACH.
--- NOTE | 2018-11-22 00:27 | NUR ---
PT RESTING WITH EYES CLOSED. RESP EVEN AND REGULAR. SR UP X2, CALL LIGHT WITHIN REACH.
--- NOTE | 2018-11-22 02:01 | NUR ---
PT WHEELING SELF DOWN HALLWAYS IN W/C. NO DISTRESS NOTED.
--- NOTE | 2018-11-22 03:56 | NUR ---
PT UP IN SHOWER. WILL CONTINUE TO MONITOR.
[2018-11-22 04:30] VITALS: BP 175/113
--- NOTE | 2018-11-22 05:18 | NUR ---
NORCO 10/325 PO GIVEN FOR C/O ABD AND SCROTUM PAIN.
[2018-11-22 05:34] LABS: BASOPHILS 0.6 % (0-2); EOSINOPHILS 6.4 % (0-7); HEMOGLOBIN 10.2 g/dL (13.5-17.5); IMMATURE GRANULOCYTES 0.2 % (0-5); LYMPHOCYTES 10.6 % (15-50); MCH 31.8 pg (26.0-34.0); MCHC 33.6 g/dL (31.0-37.0); MCV 94.7 fL (80.0-100.0); MEAN PLATELET VOLUME 10.5 fL (7.4-10.4); MONOCYTES 7.2 % (2-11); RBC 3.21 10x6/uL (4.20-6.10); RDW 13.3 % (11.5-14.5); WBC 10.1 10x3/uL (4.8-10.8)
[2018-11-22 05:39] LABS: HEMATOCRIT 30.4 % (42.0-54.0); PLATELET COUNT 203 10x3/uL (130-400)
[2018-11-22 05:48] LABS: INR 1.05 (0.85-1.17); PROTIME 13.2 SECONDS (11.6-15.0)
[2018-11-22 06:04] LABS: ANION GAP 15.2 mmol/L (8-16); CALCIUM 9.4 mg/dL (8.5-10.1); CREATININE - SERUM 7.6 mg/dL (0.6-1.3); PHOSPHOROUS 4.9 mg/dL (2.5-4.9); POTASSIUM - SERUM 4.2 mmol/L (3.5-5.1); VANCOMYCIN - RANDOM 2.6 ug/mL (10.0-20.0)
--- NOTE | 2018-11-22 06:24 | NUR ---
VSS THROUGHOUT NIGHT. PT STATED IV BUPRENEX WORKED BETTER THAN PO NORCO. SHOWER DONE PER PT. NEEDS MET;WILL CONTINUE TO MONITOR.
[2018-11-22 07:56] VITALS: BP 138/72
[2018-11-22 11:22] VITALS: BP 143/83
[2018-11-22 16:49] VITALS: BP 135/78
--- NOTE | 2018-11-22 19:25 | NUR ---
INITIAL ROUNDS COMPLETED. PT RESTING WITH EYES CLOSED. RESP EVEN AND REGULAR. SR UP X2, CALL LIGHT WITHIN REACH.
--- NOTE | 2018-11-22 19:55 | NUR ---
CLARIFIED PD ORDER WITH RENAL SERVICES. TO DRAIN AFTER 6 HRS DWELL TIME.
--- NOTE | 2018-11-22 19:59 | NUR ---
VSS. PT CONTINUES TO C/O SCROTAL PAIN. LUNGS CTA. IV TOLFA SL. L CHEST HEMOSPLIT CLEAN,DRY AND INTACT. PD CATH NOTED TO LOWER ABD.RAY DRAINING CONCENTRATED URINE. GIRLF FRIEND AT BEDSIDE. SR UPX2,CALL LIGHT WITHIN REACH.
[2018-11-22 20:07] VITALS: BP 151/100
--- NOTE | 2018-11-22 21:22 | NUR ---
LACTULOSE 30CC PO GIVENPER PT REQUEST WITH PM MEDS. GIRL FRIEND AT BEDSIDE.
--- NOTE | 2018-11-22 23:30 | NUR ---
PT DRAINED OF 800CC OF FLUID. NORCO PO GIVEN FOR C/O SCROTAL PAIN. SR UP X2, CALL LIGHT WITHIN REACH.
[2018-11-22 23:49] VITALS: BP 144/83
--- NOTE | 2018-11-23 00:21 | NUR ---
PT RESTING WITH EYES CLOSED. RESP EVEN AND REGULAR. SR UP X2,CALL LIGHT WITHIN REACH.
--- NOTE | 2018-11-23 02:18 | NUR ---
PT PLAYING ON PHONE. NO DISTRESS NOTED. SR UPX2,CALL LIGHT WITHIN REACH.
--- NOTE | 2018-11-23 04:12 | NUR ---
NORCO GIVEN FOR C/O SCROTAL PAIN. PT WHEELED SELF OUTSIDE IN W/C SOON AFTER ADMINISTRATION.
[2018-11-23 04:23] VITALS: BP 154/90
[2018-11-23 05:29] LABS: PHOSPHOROUS 5.3 mg/dL (2.5-4.9); VANCOMYCIN - RANDOM 3.1 ug/mL (10.0-20.0)
--- NOTE | 2018-11-23 06:14 | NUR ---
VSS THROUGHOUT NIGHT. PT STATES NORCO DOESN"T CONTROL SCROTUM PAIN WELL IV BUPRENEX. NEEDS MET; WILL CONTINUE TO MONITOR.
--- NOTE | 2018-11-23 07:34 | NUR ---
PT WHEELING HIMSELF OFF UNIT, DID NOT NOFITY THIS NURSE WHERE HE WAS GOING.
--- NOTE | 2018-11-23 08:30 | NUR ---
PD EXCHANGE STARTED AT THIS TIME. FILLING STARTED. ALSO GAVE AM MEDS AND NORCO FOR PAIN LEVEL OF 6/10. PT DENIES ANY OTHER NEEDS AT THIS TIME. CALL LIGHT IN REACH, FEMALE FRIEND AT BEDSIDE, NAD NOTED, WILL CONTINUE PLAN OF CARE.
--- NOTE | 2018-11-23 10:28 | NUR ---
HEMOSPLIT DRESSING CHANGED AT THIS TIME, USING STERILE TECHNIQUE. PT DENIES ANY OTHER NEEDS AT THIS TIME. CALL LIGHT IN REACH, NAD NOTED.
[2018-11-23 11:57] VITALS: BP 162/103
[2018-11-23 15:44] VITALS: BP 139/90
--- NOTE | 2018-11-23 18:38 | NUR ---
LT FA IV INFILTRATED, D/C IV WITH CATHETER TIP INTACT. WAS GOING TO START NEW IV BUT PT STATED THAT HE WANTED TO GO FOR A WALK. WILL PASS ON TO EVENT AV OPERATOR NURSE.
--- NOTE | 2018-11-23 19:24 | NUR ---
DIALYSIS COORDINATOR: PATIENT FROM [facility]. AWAITING UPDATE REGARDING NEED FOR BACKUP OPHD PLACEMENT VS RETURNING TO PD AT DISCHARGE. PER PROGRESS NOTES, TRIALS OF PD WERE BEING RESUMED. WILL F/U IN AM WITH REGISTERED MEDICAL ASSISTANT. CINDY MANSFIELD.
--- NOTE | 2018-11-23 19:28 | NUR ---
RECIEVED UP IN BED WITH EYES OPEN AND TV ON.ALERT AND ORIENTED X4. UP AD PARESH. F/C INTACT WITH CLEAR YELLOW URINE TO BEDSIDE DRAINAGE SYSTEM. NO IV SITE AT THIS TIME. HEMOSPLIT TO RIGHT CHEST. DENIES ANY PAIN AT THIS TIME.
[2018-11-23 21:25] VITALS: BP 135/56
[2018-11-23 21:34] VITALS: BP 153/88
--- NOTE | 2018-11-23 22:41 | NUR ---
RESTARTED 20 GA IV TO RIGHT FOREARM. ATTEMPTS X1.
[2018-11-24 01:56] VITALS: BP 159/104
[2018-11-24 06:23] VITALS: BP 167/108
--- NOTE | 2018-11-24 07:37 | NUR ---
GAVE NORCO FOR PAIN LEVEL OF 8/10. PT DENIES ANY OTHER NEEDS AT THIS TIME. A/O X4, RESP EVEN AND NONLABORED ON RA. LT WRIST IV SL. RAY DRAINING YELLOW CONCENTRATED URINE TO GRAVITY. CALL LIGHT IN REACH, NAD NOTED, WILL CONTINUE PLAN OF CARE.
[2018-11-24 07:44] VITALS: BP 168/99
[2018-11-24 08:00] LABS: VANCOMYCIN - RANDOM 2.6 ug/mL (10.0-20.0)
[2018-11-24 14:24] LABS: APPEARANCE HAZY (CLEAR); BILIRUBIN NEGATIVE (NEGATIVE); COLOR YELLOW (YELLOW); GLUCOSE 50 mg/dL (NEGATIVE); KETONE NEGATIVE (NEGATIVE); NITRITE NEGATIVE (NEGATIVE); PROTEIN 1+ mg/dL (NEGATIVE); UROBILINOGEN NORMAL (NORMAL)
[2018-11-24 14:25] LABS: BACTERIA FEW /hpf (NONE SEEN); EPITHELIAL CELLS 0-5 /hpf (0-5); RED CELLS - URINE 25-50 /hpf (0-5); WHITE CELLS - URINE OCC /hpf (0-5)
--- NOTE | 2018-11-24 14:25 | NUR ---
PD EXCHANGE STARTED AT THIS TIME. PT RESTING COMFORTABLY IN BED, DENIES ANY NEEDS AT THIS TIME. CALL LIGHT IN REACH, NAD NOTED, WILL CONTINUE TO MONITOR.
[2018-11-24 14:27] LABS: MUCUS <1+ /lpf (NONE SEEN)
[2018-11-24 16:37] VITALS: BP 165/96
--- NOTE | 2018-11-24 19:30 | NUR ---
PT CAME BACK FROM GOING OUT SIDE, PT HAD PD CATH CLAMPED CLOSED WITH HAND AND WAS HOLDING TUBING IN OTHER HAND. NURSE CLOSED WITH HEMOSTATS AND COVERED WITH BLEACH WIPES. NO CLAMP IN STORAGE ROOM, DIALYSIS OR IN ICU. DR GIORGIO DOWNING CALLED BACK. UPDATED ON PT STATUS. NO CLAMP AVALIBLE AT THIS TIME, DR ALVARES STATED SAFER TO PLACE OLD CLAMP BACK ON AFTER CLEANING AND STERILIZING INSTEAD OF LEAVING OPEN. TO BEST ABILITY NURSE PLACED ON THE CLAMP USING [employer]. DRAINED THE FLUID OFF 1500 PLUS WHAT WAS LOST WHEN IT WAS DISCONNECTED. NO PD FOR THE REST OF THE NIGHT PER DR ALVARES. PT VERBALIZED UNDERSTANDING. HAS NO S/S OF DISTRESS. WILL CPOC
[2018-11-24 20:00] VITALS: BP 148/89
--- NOTE | 2018-11-24 20:32 | NUR ---
EMPTIED PD AND GAVE NIGHT MEDICATIONS. NORCO GIVEN FOR PAIN. DRAINED FLUID FROM PD DID NOT FILL. PT HAS NO S/S OF DISTRESS. WILL CPOC
[2018-11-25 00:18] VITALS: BP 143/74
--- NOTE | 2018-11-25 02:52 | NUR ---
PT ASLEEP, RESP EVEN AND UNLABORED. NO S/S OF DISTRESS, WILL CPOC
--- NOTE | 2018-11-25 03:39 | NUR ---
PT UP COMPLAINING ABOUT HEAT FLASH, HEART BURN AND FEELING LIKE HE CANT URINATE. ASKING FOR LACTULOSE AND TUMS. PT RECEIVED. PT WHEELING AROUND IN WHEEL CHAIR TO GET AIR. PT DENIES ANY OTHER NEEDS. NO S/S OF DISTRESS. WILL CPOC
[2018-11-25 04:34] VITALS: BP 156/92
--- NOTE | 2018-11-25 05:31 | NUR ---
NORCO GIVEN WITH MORNING LASIX. PT GIVEN A MILK. PT STILL COMPLAINS ABOUT ACID REFLUX. PT DENIES ANY OTHER NEEDS. WILL CPOC
[2018-11-25 07:08] LABS: VANCOMYCIN - RANDOM 2.5 ug/mL (10.0-20.0)
[2018-11-25 07:41] VITALS: BP 152/90
--- NOTE | 2018-11-25 08:56 | NUR ---
PT RESTING IN BED, SHIFT ASSESSMENT PERFORMED. PT IS UPSET AND STATES THAT HE WANTS TO GO TO [facility] BECAUSE HE FEELS THAT NOTHING HAS BEEN ACOMPLISHED AT THIS HOSPTIAL. ADVISED PT I WOULD CALL AND DISCUSS HIS CONCERNS WITH HIM. EVERT ANTUNEZ WAS AT NURSING STATION. SPOKE WITH EVERT ANTUNEZ ABOUT PT CONCERNS. EVERT VISITED WITH PT. AFTER LEAVING PT ROOM SHE ADVISED NURSE THAT SHE WOULD NOT TRANSFER PT TO [facility] BUT HE COULD LEAVE AND GO THROUGH [facility] ER. SHE IS ORDERING A KUB TO CHECK PLACEMENT OF PD TUBE SINCE THE METAL CLAMP FELL OFF LAST NIGHT. SHE ALSO IS CHANGING PT PD FLUIDS. PT LEFT THE FLOOR TO "GET SOME AIR" WILL DISCUSS WITH PT ONCE HE RETURNS.
--- NOTE | 2018-11-25 09:20 | NUR ---
PT BACK ON FLOOR AND AGREES TO RESTARTING PD. ADVISED PT THAT THE METAL CONNECTOR WOULD STILL HAVE TO BE CHANGED BEFORE WE COULD START PD. PT AGREES. ADVISED PT THAT NURSE WOULD KEEP HIM UPDATED ON THE STATUS OF THE NEW CONNECTOR. PT AGREES.
--- NOTE | 2018-11-25 10:22 | NUR ---
PT LEFT FLOOR WITH FRIEND
[2018-11-25 11:36] VITALS: BP 165/95
--- NOTE | 2018-11-25 12:00 | NUR ---
OMER RENAL ANTHROPOLOGICAL LINGUIST ADVISED PT AND NURSE THAT SHE IS GOING TO GO TO ANOTHER FACILITY HERSELF AND GET THE PT A CLEAN METAL CONNECTOR FOR HIS PD TUBE AND BRING IT BACK AND PERSONALLY PLACE THE CLEAN CONNECTOR ON THE PD TUBE HERSELF. PT AGREES.
--- NOTE | 2018-11-25 13:03 | NUR ---
PT REQUESTING TO SPEAK TO NURSE. UPON ENTERING ROOM PT GRANDGRICEL AND GIRLFRIEND ARE PRESENT IN THE ROOM. GRANDGRICEL PROCEEDS TO START TELLING NURSE THAT NURSE NEEDS TO GET THE PT TRANSFERRED TO [facility]. NURSE PROCEEDED TO TELL THE GRANDMA THAT THE RENAL TOOL DRAWING CHECKER HAS ALREADY DISCUSSED THE TRANSFER WITH THE PT AND THAT THE ANSWER WAS THAT THE PT DOES NOT MEET CRITERIA TO TRANSFER TO ANOTHER HOSPITAL BUT THE PT IS ALLOWED TO LEAVE AMA AND GO TO [facility] ER IF HE WISHES. GRANDMOTHER IS UPSET AND STATES , "WELL, WHAT HAPPENED LAST NIGHT SHOULD HAVE NEVER HAPPENED." ADVISED RADHA THAT THE NURSES FOLLOWED MD ORDER WITH PUTTING THE OLD CLAMP BACK ON. RADHA THEN STARTES RAISING HER VOISE AT NURSE AND BEGINS TO TELL NURSE THAT NOTHING HAS BEEN DONE HERE. ADVISED RADHA THAT NURSE HAS HAD THIS DISCUSSION WITH THE PT SEVERAL TIMES TODAY AND THAT NURSE CAN NOT STAY IN THE ROOM FOR 30 MINUTES AGAIN TO REDISCUSS THE SAME CONCERNS THAT THE TOOL DRAWING CHECKER IS IN THE PROCESS OF ADRESSING. PT RADHA BEGINS YELLING AT NURSE THAT SHE IS GOING TO CALL ADMINISTRATION AND PICKS UP THE PHONE AND BEGINS DIALING. WHILE GRANDGRICEL IS ON THE PHONE, PT GIRLFRIEND BEGINS TO YELL AT NURSE. NURSE ATTEMPTED TO EXPLAIN TO GIRLFRIEND THAT A NURSE I HAVE MADE EVERY PHONE CALL AND ADRESSED EVERY CONCERN ALREADY AND THAT THE TOOL DRAWING CHECKER IS THE ONLY PERSON THAT CAN MAKE THE DECISIONS THEY ARE WANTING. (RORORENAL TOOL DRAWING CHECKER, WAS ON THE WAY TO ANOTHER FACILITY TO GET THE PT A BRAND NEW METAL CONNECTOR AND PERSONALLY BRING IT BACK AND PLACE IT ON THE PD CATHETER HERSELF, WHICH PT WAS ALREADY AWARE OF) GIRLFRIEND CONTINUED TO YELL AT NURSE SO NURSE LEFT THE ROOM AND WENT STRAIGHT TO SAIDA OREILLY, DROP HAMMER MECHANIC. SAIDA OREILLY AND OMER ANTUNEZ BOTH WENT TO PT ROOM AND THE GIRLFRIEND STARTED YELLING AT OMER ANTUNEZ SO SHE WAS ASKED TO LEAVE THE ROOM. THE DOOR WAS THEN SHUT AND SAIDA OREILLY, DROP HAMMER MECHANIC AND OMER ANTUNEZ SPOKE WITH PT AND HIS GRANDMA.
--- NOTE | 2018-11-25 13:10 | NUR ---
Nutrition follow-up: Diet: Renal ADA PO intake 50-75% of meals Pt leaving the floor; unknown if he is eating food then Labs reviewed; K elevated Wt: 182# +BM RDN following.
[2018-11-25] MEDS ORDERED: PROCARDIA XL PO (13:30)
[2018-11-25] MEDS ORDERED: MIRALAX17 GM PO (13:32)
--- NOTE | 2018-11-25 13:47 | NUR ---
RENAL RORO ANTUNEZ AND DIRECTOR MEDICAL WRITING DENILSON CINTRON CAME OUT OF PT ROOM AND ALERTED NURSE THAT PT WILL BE DISCHARGED HOME.
--- NOTE | 2018-11-25 14:05 | NUR ---
BEDSIDE NURSE ALERTED ME TO ISSUES. UPON ARRIVING TO ROOM, YOUNG LADY STORMED OUT OF ROOM.RAISED VOICES WERE BEING HEARD. TEODORODARRENAbisai WAS BEING CALLED. IN THE ROOM, RADHA AND RENAL CARPENTRY TEACHER WERE SHOUTING AT EACH OTHER. CARPENTRY TEACHER WAS TRYING TO EXPLAIN TO GRANDGRICEL THE POC. RADHA KEPT INTERRUPTING. THIS CODING CLERKS SUPERVISOR CALLED TIME OUT AND EXPLAINED TO EVERYONE THAT SECURITY HAS BEEN CALLED AND ON THEIR WAY. ALL INVOLVED CALMED DOWN. JULIETA HEAD OF SECURITY CAME AND INFORMED EVERYONE INVOLVED THAT DISRUPTIVE BEHAVIOR WOULD RESULT IN BEING ESCORTED OFF THE PREMISES. RENAL CARPENTRY TEACHER WAS THEN ABLE TO EXPLAIN POC WITHOUT ANY INTERRUPTION. SHE GAVE PT THE OPTION OF STAYING AND BEING BOTH HD AND PD DIALYSIS. THEN IF FLUID OFF TO BE DC IN AM. PT WANTS TO GO TO [facility]. CARPENTRY TEACHER EXPLAINED THERE WAS NO REASON FOR A TRANSFER. SHE EXPLAINED HE COULD BE DC AND THEN CAN DO WHATEVER HE WANTS. PT CHOSED THE DC. THEN METAL CONNECTOR WAS EXCHANGED BY Kahlil TAYLOR RENAL KE USING STERILE TECHNIQUE.
--- NOTE | 2018-11-25 14:43 | NUR ---
HEMASPLIT TO REMAIN INTACT FOR HD PER Kahlil TAYLOR APN. IV DC WITH TIP INTACT. DC INSTRUCTIONS GIVEN TO PT AND GRANDPARENTS. BOTH VERBALIZE UNDERSTANDING.
--- NOTE | 2018-11-25 15:44 | MORECARE ---
CASE MANAGEMENT DISCHARGE SUMMARY PATIENT: LAURA GRANT UNIT: [id number] ADM DATE: 11/12/18 AGE: 22 : [birth year] SEX: M ROOM/BED: D.2742 AUTHOR: ARA SWEET PHYSICIAN: REFERRING PHYSICIAN: GODFREY SMITH MD DATE OF SERVICE: 11/25/18 Discharge Plan Patient Name: LAURA GRANT Facility: [facility]:[place] : 1995 Planned Disposition: Home Anticipated Discharge Date: 11/25/18 Discharge Date: Expected LOS: 13 Initial Reviewer: [email or web address] Initial Review Date: 11/12/2018 Generated: 11/25/18 4:44 pm Comments DCP- Discharge Planning Updated by [email or web address]: Naveen Whitten on 11/25/18 2:[address] Patient Name: LAURA GRANT Encounter No: [id number] : 1995 Primary Insurance: MEDICARE A & B Anticipated DC Date: 11-25-2018 Planned Disposition: Home DCP follow-up note: CM BECAME AWARE OF DISCHARGE ORDER, ATTEMPTED TO SEE PT IN ROOM TO PROVIDE IMPORTANT MESSAGE FROM MEDICARE. PT NOT IN ROOM,ROOM STRIPPED; PT HAD DISCHARGED HOME AND LEFT HOSPITAL. LA Thomas DCP- Discharge Planning Updated by [email or web address]: Delma Overton on 11/12/18 4:[address] Patient Name: LAURA GRANT Admission Status: ER Accout number: [id number] Admission Date: 11-12-2018 : 1995 Admission Diagnosis: Attending: GODFREY SMITH Current LOS: 1 Anticipated DC Date: 11-16-2018 Planned Disposition: Home Primary Insurance: MEDICARE A & B Discharge Planning Comments: CM met with patient and his grandfather to complete initial dc planning assessment. CM educated patient on the CM role and verbal consent given by patient to complete assessment. CM verified patient's address, phone number, and emergency contact phone numbers. Patient lives at home independently and his girlfriend lives with him. At discharge patient plans to return home and feels this is a safe discharge. He does PD at home every HS. His catheter is not working correctly and he was not able do complete his PD last pm. He denied any problems getting his supplies for his PD each month. CM discussed availability of home health, rehab services, and medical equipment. Patient denied known discharge needs at this time. Patient reports his girlfriend, Carolina, will transport him/her home at time of discharge. CM will continue to follow and will assist as needed with dc plans/needs. Plug Sorter: Delma Overton RN, [facility] DCPIA - Discharge Planning Initial Assessment Updated by [email or web address]: Delma Overton on 11/12/18 4:56 pm * Is the patient Alert and Oriented? Yes * PCP Dr. Valadez in [facility] Dr. RADHA Steward Renal * Pharmacy [facility] * Preadmission Environment Home with Family * ADLs Independent * Equipment Other * Other Equipment PD supplies * List name and contact numbers for known caregivers / representatives who currently or will assist patient after discharge: Carolina Sorto - girlfriend - [phone] Iris Grant - grandmother - [phone] * Verbal permission to speak to the caregivers and representatives has been obtained from the patient. Yes * Community resources currently utilized None * Additional services required to return to the preadmission environment? No * Can the patient safely return to the preadmission environment? Yes * Has this patient been hospitalized within the prior 30 days at any hospital? Yes Last DP export: 11/12/18 4:09 pm Patient Name: LAURA GRANT Page [id number] at 1544 All edits/amendments must be made on the electronic document DICTATION DATE: 11/25/181542 ALLEY WORKER: MELISA 11/25/18 154 [facility]#: [id number] DC DATE: STATUS: ADM IN [facility] [address] [place] [address] END OF REPORT
--- NOTE | 2018-11-25 15:59 | NUR ---
WHILE SITTING AT THE NURSES STATION, FAMILY OF THE PT ENTERED THE ROOM AND WAS OVERHEARD MAKING DEMANDS AND YELLING. JASON RN ENTERED THE ROOM AND THE FAMILY AND FRIEND BEGAN TO ACCUSE THE NURSE AND MAKE ACCUSATIONS. ONCE THE NURSE LEFT THE ROOM, RORO, THE STUD DAIRY CATTLE FARMER, ENTERED THE ROOM AND THE FAMILY AND FRIEND ONCE AGAIN, BEGAN YELLING AND MAKING DEMANDS. RORO DEMPSEY ASKED THE FRIEND TO LEAVE THE ROOM SO THAT SHE COULD DISCUSS DETAILS OF THE PATIENTS CONDITION WITH THE PATIENT AND THE FAMILY, THE FRIEND SWUNG THE DOOR OPEN AND BEGAN TO YELL PROFANITY AND CURSE AT RORO. ONCE AGAIN, SHE ASKED THE FRIEND TO LEAVE BECAUSE SHE WAS YELLING AND MAKING ACCUSATIONS, SHE BEGAN TO CLOSE THE DOOR THE FRIEND PUSHED THE DOOR BACK OPEN. THE FAMILY AND FRIEND OF THE PATIENT WERE HEARD YELLING AND CURSING AT BOTH OLIVA AND JASON RODRIGUEZ RN. THE ONLY AGGRESSION SEEN OR HEARD WAS FROM THE FAMILY AND FRIEND OF THE PATIENT. RORO NOR JASON TOUCHED ANYONE IN THE PROCESS OF THIS OCCURANCE. SECURITY AND THE MACHINE SHOP INSTRUCTOR WERE CALLED.
== END 2018-11-25 16:24 | disposition home or self-care (01) | DRG 907 ==
LOC: D.ER 14:04 → D.EDHOLD 16:17 → D.M2 16:17 → D.SDCHOLD 11-17 14:02 → D.M2 11-17 14:04
PROVIDERS: Emergency Medicine; Internal Medicine; Internal Medicine Nephrology; Surgery; ADMIT Internal Medicine Nephrology; ATTEND Internal Medicine Nephrology
PROC: 0WJG4ZZ Inspection of Peritoneal Cavity, Percutaneous Endoscopic Approach (ICD-10-PCS; principal; 2018-11-13 12:00)
PROC: 0JH63XZ Insertion of Tunneled Vascular Access Device into Chest Subcutaneous Tissue and Fascia, Percutaneous Approach (ICD-10-PCS; 2018-11-19)
PROC: 05HM33Z Insertion of Infusion Device into Right Internal Jugular Vein, Percutaneous Approach (ICD-10-PCS; 2018-11-19)
PROC: B5131ZA Fluoroscopy of Right Jugular Veins using Low Osmolar Contrast, Guidance (ICD-10-PCS; 2018-11-19)
DX: T85.611A Breakdown (mechanical) of intraperitoneal dialysis catheter, initial encounter (principal); N18.6 End stage renal disease; I12.0 Hypertensive chronic kidney disease with stage 5 chronic kidney disease or end stage renal disease; Y83.8 Other surgical procedures as the cause of abnormal reaction of the patient, or of later complication, without mention of misadventure at the time of the procedure; Z99.2 Dependence on renal dialysis; K59.00 Constipation, unspecified; E87.70 Fluid overload, unspecified

== ENCOUNTER 2018-11-13 08:00 | Outpatient (CLI) | payer MEDICARE ==
[~2018-11-13 08:00] MED LIST: COLACE100 MG PO; COZAAR100 MG PO; MEGACE40 MG PO; MULTI-DAY VITAM1 TAB PO; NORVASC10 MG PO; PHENERGAN25 M1 PO; RENVELA800 MG PO; RESTORIL15 MG PO; SENSIPAR60 MG PO; TENORMIN100 MG PO
[2018-11-13 12:50] VITALS: BMI 21.4
== END 2018-11-13 08:01 | disposition home or self-care (01) ==
LOC: D.OPS 08:00 → EDSTATUS 12:00
PROVIDERS: ATTEND Surgery
DX: N18.6 End stage renal disease (principal); Z53.9 Procedure and treatment not carried out, unspecified reason